=== PATIENT | female | born 1980 | race Caucasian/White ===

== ENCOUNTER 2018-01-11 12:30 | Inpatient (IN) | payer OTHER ==
[~2018-01-11] VITALS: Ht 165.1 cm; Wt 3.2 kg
[2018-01-13] MEDS ORDERED: [UNRECOGNIZED DRUG - OTHER] PO (11:51)
[2018-01-13] MEDS ORDERED: PRENATAL PLUS1 EAC1 PO (11:51)
[2018-01-16] MEDS ORDERED: Proctofoam RECTAL (09:42)
[2018-01-16] MEDS ORDERED: CODE1TAB37 PO (09:42)
[2018-01-16] MEDS ORDERED: NAPR500T14 PO (09:42)
== END 2018-01-16 13:37 | DRG 766 ==
LOC: O/R 01-13 11:01 → OB/GYN 01-13 12:30 → SURG-SUITE 01-13 17:33 → OB/GYN 01-13 19:15 → SURG-SUITE 01-16 13:37
PROVIDERS: Obstetrics & Gynecology
PROC: 4A033R1 Measurement of Arterial Saturation, Peripheral, Percutaneous Approach (ICD-10-PCS; 2018-01-13)
PROC: 4A1HXCZ Monitoring of Products of Conception, Cardiac Rate, External Approach (ICD-10-PCS; 2018-01-13)
PROC: 10D00Z1 Extraction of Products of Conception, Low, Open Approach (ICD-10-PCS; principal; 2018-01-13 19:15)
DX: O99.824 Streptococcus B carrier state complicating childbirth (principal); Z3A.38 38 weeks gestation of pregnancy; Z37.0 Single live birth